=== PATIENT | male | born 1995 | race Caucasian/White ===

== ENCOUNTER 2022-05-31 00:57 | Inpatient (IN) | payer OTHER ==
[~2022-05-31] VITALS: Ht 182.9 cm; Wt 117.9 kg
[2022-05-31] MEDS ORDERED: PANTOPRAZOLE SODIUM 40 MG VIAL IV ONE (01:15)
[2022-05-31] MEDS ORDERED: PANTOPRAZOLE SODIUM IV 80 MG in IV DEXTROSE 5% 100 ML IV ONE (01:15)
[2022-05-31] MEDS ORDERED: PANTOPRAZOLE SODIUM 40 MG VIAL ONE ×2 (01:28→01:36)
[2022-05-31 01:59] LABS: CARBON DIOXIDE 20 mmol/L (21-32); CHLORIDE 100 mmol/L (98-107); CREATININE 1.4 mg/dL (0.6-1.3); GLUCOSE 104 mg/dL (74-106); POTASSIUM 3.3 mmol/L (3.5-5.1); UREA NITROGEN, BLOOD 10 mg/dL (7-18)
[2022-05-31 02:00] LABS: ETHANOL 113 MG/DL (0-0); HEMATOCRIT 44.6 % (36.7-47.1); MEAN CORPUSCULAR HEMOGLOBIN 28.3 uug (23.8-33.4); MEAN CORPUSCULAR VOLUME 83.5 fL (73.0-96.2); PLATELET COUNT (AUTO) 405 K/uL (152-348)
[2022-05-31 02:08] LABS: ALANINE AMINOTRANSFERASE 28 U/L (16-63); ALKALINE PHOSPHATASE 129 U/L (50-136); ASPARTATE AMINOTRANSFERASE 26 U/L (15-37); BILIRUBIN,DIRECT 0.1 mg/dL (0.0-0.2); BILIRUBIN,TOTAL 0.5 mg/dL (0.2-1.0); LIPASE 117 U/L (73-393); TOTAL PROTEIN, SERUM 9.4 g/dL (6.4-8.2)
[2022-05-31] MEDS ORDERED: ALPR1TAB2 PO (02:20)
[2022-05-31] MEDS ORDERED: IV NS 1000 ML 1,000 ML IV ONE (02:30)
[2022-05-31] MEDS ORDERED: PIPERACILLIN/TAZOBACTAM/D5W 50 ML IV ONE (02:55)
[2022-05-31] MEDS ORDERED: VANCOMYCIN IV 200 ML ONE (02:55)
[2022-05-31] MEDS ORDERED: VANCOMYCIN 1G/D5W 200 ML PIGGYBACK IV ONE (03:00)
[2022-05-31] MEDS ORDERED: PIPERACILLIN SODIUM/TAZOBACTAM 3.375 G in IV DEXTROSE 5% 50 ML IV ONE (03:00)
[2022-05-31] MEDS ORDERED: IV NS 1000 ML 1,000 ML IV SCH (03:15)
[2022-05-31] MEDS ORDERED: hydrALAZINE HCL 20 MG/1 ML VIAL IV PRN (03:15)
[2022-05-31] MEDS ORDERED: ONDANSETRON 4 MG/2 ML VIAL IV PRN (03:15)
[2022-05-31] MEDS ORDERED: PANTOPRAZOLE SODIUM 40 MG VIAL IV SCH ×2 (03:15→21:00)
[2022-05-31] MEDS ORDERED: LORAZEPAM 2 MG/1 ML VIAL IV PRN (03:15)
[2022-05-31] MEDS ORDERED: ACETAMINOPHEN 325 MG TABLET PO PRN (03:15)
[2022-05-31] MEDS ORDERED: MORPHINE SULFATE 2 MG/1 ML DISP.SYRIN IVP PRN (03:15)
[2022-05-31 03:41] LABS: HEMATOCRIT 42.5 % (36.7-47.1)
[2022-05-31 05:29] VITALS: BP 125/82
[2022-05-31] MEDS: CHLORDIAZEPOXIDE HCL 25 MG CAPSULE PO SCH ×4 (05:53→17:08)
[2022-05-31] MEDS: POTASSIUM CHLORIDE 50 ML IV SCH ×2 (09:59→11:16)
[2022-05-31 11:35] LABS: HEMATOCRIT 41.8 % (36.7-47.1)
[2022-05-31 11:53] VITALS: BP 144/88
[2022-05-31] MEDS ORDERED: OMEP40CA21 PO (14:32)
[2022-05-31 15:45] VITALS: BP 150/83
== END 2022-05-31 17:15 | disposition home or self-care (01) | DRG 241 ==
LOC: ER 01:03 → TELE3 03:11
DX: K29.71 Gastritis, unspecified, with bleeding (principal); E87.20 Acidosis, unspecified; E86.0 Dehydration; K92.0 Hematemesis; E87.6 Hypokalemia; F17.210 Nicotine dependence, cigarettes, uncomplicated; F10.229 Alcohol dependence with intoxication, unspecified; Y90.5 Blood alcohol level of 100-119 mg/100 ml; D72.829 Elevated white blood cell count, unspecified; K21.9 Gastro-esophageal reflux disease without esophagitis; Z20.822 Contact with and (suspected) exposure to COVID-19
CPT/HCPCS: 36415; 71045; 83605; 83690; 84484; 85018; 85025; 85730; 86850; 86900; 86901; 87040; 93005; A4663; C9113; G0378; G0480; J2060; J2405; J2543; J3370; J3480; J7040